=== PATIENT | male | born 1965 | race Caucasian/White ===

== ENCOUNTER 2023-03-14 19:11 | Emergency (ER) | payer MEDICAID, SELFPAY ==
--- NOTE | ~2023-03-14 | CT_ITS ---
EXAMINATION: CT HEAD WITHOUT CONTRAST CLINICAL INFORMATION: Severe headache; hypertension. COMPARISON: None available. TECHNIQUE: Contiguous axial imaging was performed from the skull base to vertex without intravenous administration of contrast. This CT examination was performed using dose optimization techniques as appropriate, variously including the following: *Automated exposure control *Adjustment of mA and/or kV according to patient size (this includes techniques or standardized protocols for targeted exams where dose is matched to indication/reason for exam; i.e. extremities or head) *Use of iterative reconstruction technique DLP: 739 mGy-cm FINDINGS: There is no acute intracranial hemorrhage or evidence of territorial infarction. No abnormal mass effect or midline shift is seen. Hall to white matter differentiation is well preserved. There is no abnormal attenuation within the brain parenchyma. The ventricles are normal in size. No extra-axial fluid collections are identified. The calvarium and scalp soft tissues are normal. The middle ear cavity and mastoid air cells are clear. There is marked bilateral ethmoid mucosal thickening, and mild bilateral frontal and maxillary mucosal thickening is seen.. CT/CT head/brain wo IV con IMPRESSION: 1. No acute intracranial pathology. 2. There is paranasal sinusitis.
[2023-03-14 19:19] VITALS: BP 178/100; PULSE 90; O2SAT 98
[2023-03-14 19:27] VITALS: BMI 24.2
[2023-03-14 19:33] VITALS: BP 169/82; PULSE 84; RESP 16; TEMP 36.8; O2SAT 96
--- NOTE | 2023-03-14 19:36 | ECG_ITS ---
Test Reason : HTN Blood Pressure : / mmHG Vent. Rate : 084 BPM Atrial Rate : 084 BPM P-R Int : 136 ms QRS Dur : 088 ms QT Int : 382 ms P-R-T Axes : 057 026 014 degrees QTc Int : 451 ms Normal sinus rhythm Minimal voltage criteria for LVH, may be normal variant ( Sokolow-Matias ) Borderline ECG No previous ECGs available Referred By: Evie Felipe Electronically Signed By:LAURYN BRUNNER MD
--- NOTE | 2023-03-14 19:43 | PC.NURSE ---
This RN assumed care upon patient's arrival. Patient states that he is coming from [facility] for headache. This RN obtained a medication list from Vianney Garcia RN. at [facility]: Patient last took Clonidine at 1602 as well as Hydroxyzine per Cassie Mosquera RN. Patient was sent here for increased blood pressure concerns
[2023-03-14 19:53] LABS: MANUAL DIFF FLAG NO
--- NOTE | 2023-03-14 19:57 | ED_ITS ---
HPI - Headache General Chief Complaint: Headache Stated Complaint: Cassie Hazen, hypertension w/ headache x1wk Time Seen by Provider: 03/14/23 19:31 Source: patient and EMS Mode of arrival: EMS Limitations: no limitations History of Present Illness HPI Narrative: This is a 57 year old male coming from [facility] for suicidal ideation w/ hx of HTN presenting w/ headpain feels like an electrical current on the right side of his head to the right side of his face. Started today. Reports he was told that his BPs were elevated at [facility]. No cp, sob, visual changes, dizziness, fevers, chills, neck pain at this time Related Data Previous Rx's Medication Instructions Recorded ketorolac 10 mg tablet 10 mg PO TID PRN pain 5 days #15 03/14/23 tabs Allergies Allergy/AdvReac Type Severity Reaction Status Date / Time No Known Allergies Allergy Verified 03/14/23 19:27 Review of Systems 2 Review of Systems: Constitutional : No Weight loss, No Fever, No Chills, No Fatigue, No Malaise ENT/Mouth : No sore throat, No Rhinorrhea Eyes: No Eye Pain, No Swelling, No Redness Cardiovascular : No Chest Pain, No SOB, No Dyspnea on Exertion, No Orthopnea, No Edema, No Palpitations Respiratory : No Cough, No Sputum, No Wheezing Gastrointestinal : No Nausea, No Vomiting, No Diarrhea, No Constipation, No abdominal Pain, No Hematochezia, No Melena Genitourinary : No Dysuria, No Urinary Frequency, No Hematuria, Musculoskeletal : No joint pain, No Myalgias, No Joint Swelling Skin : No Skin Lesions, No rash Neuro : No Weakness, No Numbness, No Dizziness, + Headache Psych : No Anxiety/Panic, No Depression All other systems reviewed and are negative Yes all other systems are reviewed and are negative [facility] Past Medical History Attestation statement: The following information was validated with the patient. Source: old records reviewed and nursing notes reviewed Social History Social History Alcohol intake: current Alcohol intake frequency: 0-2 drinks per day Smoked in Last 30 Days: Yes Use of substances other than those prescribed or required for medical reasons: Yes Substance Use Type: Crack/Cocaine Substance Use Frequency: Chronic Longstanding Last Used Substance: Weeks (ago) Advance Directives: No Advance Directives Information Provided: No Physical Exam 2 Vital Signs: Vital Signs: Last Vital Signs Temp 98.2 F 03/14/23 21:30 Pulse 78 03/14/23 21:30 Resp 18 03/14/23 21:30 BP 156/92 H 03/14/23 21:30 Pulse Ox 100 03/14/23 21:30 O2 Del Method Room Air 03/14/23 21:30 BMI result Body Mass Index 24.2 Vital signs slightly hypertensive however Appearance: Alert.? Oriented X3.? No acute distress.? Head: Normocephalic, atraumatic, no step-offs or deformities Eyes: Pupils equal, round and reactive to light.? ENT: Pharynx normal.? Neck: Normal inspection.? Neck supple.? CVS: Normal heart rate and rhythm.? Pulses normal.? Respiratory: No respiratory distress.? Breath sounds normal.? Abdomen: Soft and nontender.? Skin: Skin warm and dry.? Normal skin color.? Normal skin turgor.? Extremities: No lower extremity edema.? No calf ttp. 5/5 strength to bilateral upper and lower extremities Back: No midline tenderness, no C-spine tenderness, full range of motion, no CVA tenderness bilaterally Neuro: Oriented X 3.? No motor deficit.? No sensory deficit. CN 2-12 intact . Normal pfecae-kk-dhgk, igfb-qk-[id number], steady tandem gait with normal coordination. Negative Romberg and pronator drift. NIH stroke scale 0 Course Reevaluation(s) Reevaluation #1: Patient's CBC with a slight normocytic anemia, no reports of bleeding, no tachycardia or hypotension low suspicion for acute blood loss, patient denies hematemesis, hematochezia or melena, chemistry unremarkable. Troponin negative, EKG nonischemic. CRP only mildly elevated, unlikely temporal arteritis. Patient ambulating around the department without difficulty I do not suspect stroke, posterior stroke. Unlikely dissection, aneurysm rupture. I do not suspect acute hypertensive emergency. CT head pending will give home dose of clonidine to help with blood pressure control. Time: 20:43 Reevaluation #2: Patient's CT head with no acute intracranial pathology. There is paranasal sinusitis however no sinusitis symptoms, no fever, fatigue, malaise. Patient reports his headache has improved significantly, ESR within normal limits. Unlikely temporal arteritis. Will discharge him with Toradol. Educated patient on diagnosis and treatment plan, answered all question, patient verbalizes understanding. At this time patient will be discharged home, advised to return with new or worsening symptoms. Educated on worrisome signs and symptoms and when to return. At this time I feel comfortable discharge home. At time of discharge discharge patient pain-free, neurological assessment remains unremarkable. Time: 21:39 Reevaluation #3: Patient is starting to get the pain again not as severe will give morphine at this time. Blood pressure went up when patient was reporting pain. Time: 22:26 Medications Administered Discontinued Medications Generic Name Dose Route Start Last Admin Trade Name Petra PRN Reason Stop Dose Admin Clonidine HCl 0.1 mg 03/14/23 20:32 03/14/23 20:50 Clonidine Hcl 0.1 Mg Tablet PO 03/14/23 20:33 0.1 mg ONCE ONE Administration Protocol Ketorolac Tromethamine 30 mg 03/14/23 19:50 03/14/23 20:12 Ketorolac Tromethamine 15 Mg/Ml Vial IM 03/14/23 19:51 30 mg ONCE ONE Administration Medical Decision Making Medical Decision Making [facility] Narrative: 1952 57-year-old male presents with complaints of hypertension and headache to the right side of his head with radiation to face Physical exam benign. NIH stroke scale 0. Neurological assessment normal. Cerebellar intact Concerns for possible occipital neuralgia versus trigeminal neuralgia versus migraine. Unlikely stroke, posterior stroke, temporal arteritis. Unlikely hypertensive urgency or emergency. Hypertension likely secondary to pain. Patient reports he is pretty uncomfortable peer Plan at this time labs, imaging, EKG, head CT and Toradol for pain Differential Diagnosis Differential Diagnoses: The differential diagnosis associated with the presentation includes Concerns for possible occipital neuralgia versus trigeminal neuralgia versus migraine. Unlikely stroke, posterior stroke, temporal arteritis. Unlikely hypertensive urgency or emergency. Hypertension likely secondary to pain. Patient reports he is pretty uncomfortable peer Admission/Observation Consideration of admission/observation: Escalation of care including admission/observation considered Unlike Lab Data [facility] Lab Attestation statement: I reviewed the patient's lab results. 03/14/23 19:47 03/14/23 19:47 Labs: Lab Results 03/14/23 Range/Units 19:47 WBC 7.1 (4.8-10.8) X10*3/uL RBC 3.58 L (4.60-5.80) X10*6/uL Hgb 10.6 L (14.0-18.0) g/dl Hct 31.9 L (42.0-52.0) % MCV 89.1 (80.0-98.0) fL MCH 29.6 (27.0-33.0) pg MCHC 33.2 (31.0-36.0) g/dl RDW 13.8 (11.0-16.0) % Plt Count 210 (160-400) X10*3/uL MPV 10.0 (9.4-12.4) fL Immature Gran % (Auto) 2.7 H (0.0-0.4) % Neut % (Auto) 51.4 (45-73) % Lymph % (Auto) 28.9 (20-40) % [place] % (Auto) 12.2 H (2-11) % Eos % (Auto) 4.4 H (0-4) % Baso % (Auto) 0.4 (0-2) % Lymph # (Auto) 2.0 (1.2-4.9) X10*3/uL [place] # (Auto) 0.9 (0.1-1.2) X10*3/uL Eos # (Auto) 0.3 (0.0-0.4) X10*3/uL Baso # (Auto) 0.0 (0.0-0.2) X10*3/uL Abs Immat Gran (auto) 0.19 H (0.00-0.03) X10*3/uL Absolute Neuts (auto) 3.6 (2.0-8.3) x10*3/uL Absolute Nucleated RBC 0.000 (0.0-0.012) X10*3/uL Nucleated RBC % (auto) 0.0 (0.0-0.2) /100WBC ESR 5 (0-15) MM/HR Sodium 142 (135-145) mmol/L Potassium 4.2 (3.3-5.1) mmol/L Chloride 107 (96-108) mmol/L Carbon Dioxide 24 (22-29) mmol/L Anion Gap 15 (12-20) BUN 20 H (9-16) mg/dL Creatinine 0.87 (0.5-1.4) mg/dL Estim Creat Clear Calc 85.4 Estimated GFR > 60 Random Glucose 115 (60-115) mg/dL Calcium 9.3 (8.4-10.2) mg/dL Magnesium 2.0 (1.6-2.6) mg/dL Total Bilirubin 0.1 (0.0-1.0) mg/dL AST 23 (5-37) U/L ALT 29 (0-40) U/L Alkaline Phosphatase 49 (39-117) U/L Troponin I High Sens < 2.7 (<3.5-35.0) ng/L C-Reactive Protein 0.89 H (< or = 0.50) mg/dL Total Protein 6.2 L (6.5-8.0) g/dL Albumin 3.7 (3.5-5.0) g/dL Independent Interpretation I performed an independent interpretation of an: EKG (Ventricular rate 84, [place] normal, QRS normal, QT/QTC normal. EKG with normal sinus rhythm low voltage, no ST elevations or inversions concerning for ischemia.) and CT Scan (CT/CT head/brain wo IV con IMPRESSION: 1. No acute intracranial pathology. 2. There is paranasal sinusitis. ) Radiology Impression Discussion of test interpretation with radiology: I have reviewed the radiologist's reading. Critical Care Time Critical Care Time Critical Care Time: No Discharge Plan Discharge Clinical Impression: Headache, High blood pressure Patient Disposition: Home, Self-Care Instructions: Acute Headache (ED) Additional Instructions: Take your medications as prescribed. If you were prescribed antibiotics today, it is important that you take your medication to their entirety, do not skip any doses, do not finish them early. Follow-up with your primary care provider this week. Return to the emergency department with new or worsening symptoms. Such as fevers, chills, chest pain, shortness of breath, nausea, vomiting, dizziness, headache, vision changes, lethargy In case of emergency call 911 Toradol has been sent to your pharmacy, you tolerated this well in the department. Please take this as prescribed do not take this with ibuprofen, or other NSAIDs, do not mix this with alcohol. Side effects of this medication including increased risk for bleeding and possible kidney injury. CT/CT head/brain wo IV con IMPRESSION: 1. No acute intracranial pathology. 2. There is paranasal sinusitis. Prescriptions: New ketorolac 10 mg tablet 10 mg PO TID PRN (Reason: pain) 5 Days Qty: 15 0RF [place] [facility] [place] Group[place] - 1 day ED Physician,Generic [Physician] - 2 days Stand Alone Forms: Work/School Release
[2023-03-14 20:00] VITALS: BP 165/91; PULSE 85; RESP 16; TEMP 36.9; O2SAT 95
[2023-03-14] MEDS: Ketorolac Tromethamine 15 MG/ML VIAL 30 MG IM (20:12)
--- NOTE | 2023-03-14 20:18 | PC.NURSE ---
pt mediated per MAR.
[2023-03-14 20:23] LABS: Basophils Percent Auto 0.4 % (0-2); Eosinophils Absolute Auto 0.3 X10*3/uL (0.0-0.4); Eosinophils Percent Auto 4.4 % (0-4); Hematocrit 31.9 % (42.0-52.0); Hemoglobin 10.6 g/dl (14.0-18.0); Imm Gran Abs Auto 0.19 X10*3/uL (0.00-0.03); Imm Gran Pct Auto 2.7 % (0.0-0.4); Lymphocytes Percent Auto 28.9 % (20-40); Mean Corpuscular HGB Conc 33.2 g/dl (31.0-36.0); Mean Corpuscular Hemoglobin 29.6 pg (27.0-33.0); Mean Corpuscular Volume 89.1 fL (80.0-98.0); Monocytes Absolute Auto 0.9 X10*3/uL (0.1-1.2); Monocytes Percent Auto 12.2 % (2-11); Neutrophils Absolute Auto 3.6 x10*3/uL (2.0-8.3); Neutrophils Percent Auto 51.4 % (45-73); Platelet Count 210 X10*3/uL (160-400); Red Blood Count 3.58 X10*6/uL (4.60-5.80); Red Cell Distribution Width 13.8 % (11.0-16.0); White Blood Count 7.1 X10*3/uL (4.8-10.8)
[2023-03-14 20:25] LABS: Alanine Aminotransferase 29 U/L (0-40); Albumin Level 3.7 g/dL (3.5-5.0); Alkaline Phosphatase 49 U/L (39-117); Anion Gap 15 (12-20); Aspartate Amino Transferase 23 U/L (5-37); Bilirubin Total 0.1 mg/dL (0.0-1.0); Blood Urea Nitrogen 20 mg/dL (9-16); C Reactive Protein 0.89 mg/dL (< or = 0.50); Calcium 9.3 mg/dL (8.4-10.2); Carbon Dioxide 24 mmol/L (22-29); Chloride 107 mmol/L (96-108); Creatinine Clr Calc Pharmacy 85.4; Estimated Glomerular Filt Rate > 60; Glucose Random 115 mg/dL (60-115); Potassium 4.2 mmol/L (3.3-5.1); Sodium 142 mmol/L (135-145); Total Protein 6.2 g/dL (6.5-8.0)
[2023-03-14 20:38] LABS: Troponin-I High Sensitivity < 2.7 ng/L (<3.5-35.0)
[2023-03-14] MEDS: cloNIDine HCL 0.1 MG TABLET PO (20:50)
[2023-03-14 20:51] VITALS: BP 150/100; PULSE 80; RESP 18; TEMP 36.8
[2023-03-14 21:29] LABS: Erythrocyte Sedimentation Rate 5 MM/HR (0-15)
[2023-03-14 21:30] VITALS: BP 156/92; PULSE 78; RESP 18; TEMP 36.8; O2SAT 100
[2023-03-14] MEDS: Morphine Sulfate Immed Release 15 MG TABLET PO (22:42)
[2023-03-14 22:43] VITALS: BP 172/94
--- NOTE | 2023-03-14 22:45 | PC.NURSE ---
Patient medicated per AUG. Patient's BP continued to rise while waiting for ambulance, patient medicated with morphine to lower BP currently 172/94
--- NOTE | 2023-03-14 23:43 | PC.NURSE ---
Patient discharged with Makenna at this time. Report given to Public Health Social Worker Leo at [facility], discharge instructions reviewed, patient AOx4 upon discharge, vital signs stable
== END 2023-03-14 23:44 | disposition home or self-care (01) ==
PROVIDERS: Physician Assistant; Emergency Provider Emergency Medicine
DX: R51.9 Headache, unspecified (principal); I10 Essential (primary) hypertension; Z79.899 Other long term (current) drug therapy
CPT/HCPCS: 36415; 70450; 80053; 83735; 84484; 85025; 85652; 86140; 93005; 96372; 99284; 99285; J1885